=== PATIENT | female | born 1995 | race Caucasian/White ===

== ENCOUNTER 2018-12-02 06:00 | Inpatient (IN) ==
[~2018-12-02 06:00] MED LIST: *HR* Nalbuphine 10 MG/ML AMPUL IVP PRN; Famotidine 20 MG/2 ML VIAL IVP PRN; Metoclopramide 10 MG/2 ML VIAL IVP PRN; Naloxone 0.4 MG/ML INJ IVP PRN; Penicillin G Potassium 5,000,000 UNIT in 0.9 % Sodium Chloride Mini Bag 100 ML IVPB ONE; Ringers Solution, Lactated 1,000 ML IVC SCH
[2018-12-02 06:45] LABS: Basophils # 0.1 K/mcL (0.0-0.2); Basophils % 0.7 %; Eosinophils # 0.3 K/mcL (0.0-0.6); Hematocrit 32.1 % (35.3-44.9); Hemoglobin 11.1 g/dL (11.5-15.4); Immature Granulocytes % 0.5 % (0-4); Lymphocytes # 2.8 K/mcL (0.6-4.6); Lymphocytes % 26.3 %; Mean Corpuscular HGB Conc 34.6 g/dL (31.6-35.5); Mean Corpuscular Hemoglobin 31.4 pg (28.0-33.3); Mean Corpuscular Volume 90.9 fL (83.0-100.0); Mean Platelet Volume 10.9 fL (9.4-12.4); Monocytes # 0.8 K/mcL (0.0-1.3); Monocytes % 7.3 %; Neutrophils # 6.6 K/mcL (1.6-8.9); Platelet Count 280 K/mcL (140-400); Red Blood Count 3.53 M/mcL (3.82-4.97); Red Cell Distribution Width 13.2 % (11.5-14.5); Segmented Neutrophils % 62.2 %; White Blood Count 10.7 K/mcL (4.3-11.1)
[2018-12-02 07:24] LABS: Amphetamine Screen,Urine Negative ng/mL (Cutoff=1000); Barbiturate Screen,Urine Negative ng/mL (Cutoff=200)
[2018-12-02 07:25] LABS: Benzodiazepines Screen,Urine Negative ng/mL (Cutoff=300); Cannabinoid Screen,Urine Negative ng/mL (Cutoff = 50); Cocaine Screen,Urine Negative ng/mL (Cutoff= 300); Opiate Screen,Urine Negative ng/mL (Cutoff=300); Phencyclidine Screen,Urine Negative ng/mL (Cutoff=25)
[2018-12-02] MEDS ORDERED: Ropivacaine/PF 0.2% 20 ML VIAL EP ONE (08:26)
[2018-12-02] MEDS ORDERED: *HR* FentaNYL (PF) 100 MCG/2 ML VIAL EP ONE (08:26)
[2018-12-02] MEDS ORDERED: Naloxone 0.4 MG/ML INJ IVP PRN (08:26)
[2018-12-02] MEDS ORDERED: Ondansetron 4 MG/2 ML VIAL IVP PRN (08:26)
[2018-12-02] MEDS ORDERED: EPHEDrine 50 MG/ML VIAL IVP PRN (08:26)
[2018-12-02] MEDS ORDERED: Epidural Premix (fent/bupiv) 110 ML EP SCH (08:30)
--- NOTE | 2018-12-02 08:32 | Anesthesia Evaluation PreOp ---
Date of Encounter: 12/02/18 Time of Encounter: 08:27 - Past History Planned Operation: SHELDON Cardiac History: Denies any Significant Hx Pulmonary History: Denies Any Significant HX EDGE BANDER HAND History: Denies Any Significant HX Other Medical History: Thyroid (history of cyst removal from thyroid) Anesthesia History: No Prior Anesthetic Complications, Past Anesthesia (Excision of thyroid cyst, wisdom teeth extraction) : Yes Alcohol Use: none Drug use: none Medications and Allergies Ferrous Sulfate [Iron] 1 tab PO DAILY 12/02/18 [History] Pnv No.95/Ferrous Fum/Folic AC [ Caplet] 1 tab PO DAILY 12/02/18 [History] Allergy/AdvReac Type Severity Reaction Status Date / Time No Known Allergies Allergy Verified 12/02/18 06:29 - Meds/Allergy Pre-op Review Medications Reviewed: Yes Allergies Reviewed: Yes Beta Blockers on Current Med List: No Anesthesia Results - Labs 12/02/18 06:00 Anesthesia Exam BP 118/70 P 91 R 18 T 97.3 Height: 5'1" Weight: 75.29kg NPO (# of Hours): 3 Pain Scale: 4 Pain Scale Used: Numeric (1 - 10) - HEENT Pupil (Motor): Pupils equal Mallampati: II Teeth: Normal Oral Opening: Greater than 3 - EDGE BANDER HAND LOC: Oriented EDGE BANDER HAND Motor: Normal RUE, Normal LUE, Normal RLE, Normal LLE, Normal Face EDGE BANDER HAND Sensory: Normal: RUE, LUE, RLE, LLE, Face - Cardiac Rhythm: Regular Murmur: None JVD: No Carotid Bruit: No - Pulmonary Breath Sounds: bilateral Clear Respiratory Effort: Symmetrical Anesthesia Assess/Plan ASA Score: 2 Level of consciousness: Cooperative, Oriented, Tranquil Anesthetic Plan: Epidural Autologous Blood: No Recovery Plan: Other
[2018-12-02] MEDS ORDERED: *HR* FentaNYL (PF) 100 MCG/2 ML VIAL ONE (08:40)
[2018-12-02] MEDS ORDERED: *HR* Phenylephrine 10 MG/ML VIAL ONE (08:41)
[2018-12-02] MEDS ORDERED: Ropivacaine/PF 0.2% 20 ML VIAL ONE (08:41)
--- NOTE | 2018-12-02 09:23 | Anesthesia Procedures ---
Date of Encounter: 12/02/18 Time of Encounter: 08:47 Procedures: Anesthesia - Epidural/Spinal Patient ID/Chart reviewed: Yes Patient examined: Yes OB Eval: Gestational age: 37 OB Eval: : 2 OB Eval: Hx Para: 1 OB Eval: Dilated at (cm): 2 OB Eval: Contractions: Non-stressed pattern Consent Obtained: Yes Supplemental Oxygen: None/Room Air Site Prep: Aseptic Technique, Sterile prep and drape, Povidone-Iodine 1% Patient position: upright Local Anesthetic: Lidocaine 1% Amount of Local Anesthetic used: 3 Touhy Needle Gauge: 18 Touhy Needle Depth (cm): 6 Catheter Depth at Skin (cm): 14 Test Dose (1.5% Lido + Epi): Volume given (mls): 3 Test Dose Result: Negative Loading Dose: Fentanyl (mcg): 100 Loading Dose: Other: Ropivicaine 0.2% 5ml, 3ml Normal saline Loading Dose Administered: Thru Catheter Infusion Med: 0.125% Bupivacaine w/ 2 mcg/ml Fentanyl Infusion Rate (mls/hr): [address]: Tegaderm, Tape Interspace Used: L4-L5 Loss of Resistance (ROMAIN): Yes Blood: No CSF: No Paresthesia: No Procedure: SHELDON placed 1st pass in upright position. ROMAIN achieved with normal saline. Catheter threaded with ease to 14cm at the skin. Test dose negative. Pt stated comfort following administration of bolus. VSS throughout. Vitals + FHT's: 0847 BP 110/67 P 93 R 18 0912 BP 116/62 P 77 R 16
[2018-12-02] MEDS: Penicillin G Potassium 2,500,000 UNIT in 0.9 % Sodium Chloride 100 ML IVPB SCH ×2 (10:25→14:32)
--- NOTE | 2018-12-02 13:06 | Anesthesia Progress Note ---
Date of Encounter: 12/02/18 Time of Encounter: 13:01 Anesthesia Note - Note Note: 12/02/18 13:01 Called to patient bedside with complaints of breakthrough labor abdominal pain. Ropivicaine 0.1% 10ml administered via epidural bolus. BP 113/57 P81
[2018-12-02] MEDS ORDERED: *HR* Ropivacaine/PF 0.5% 20 ML VIAL ONE (13:13)
--- NOTE | 2018-12-02 13:34 | Anesthesia Progress Note ---
Date of Encounter: 12/02/18 Time of Encounter: 13:32 Anesthesia Note - Note Note: 12/02/18 13:32 Pt stated previous bolus relieved pain, but that relief was somewhat one sided. Epidural catheter pulled back to 11cm at the skin. Epidural pump rate increased to 16ml/hr. VSS
[2018-12-02] MEDS ORDERED: Oxytocin 20 units/ LR 1000 mL 20 UNIT/1,000 ML BAG IVC ONE ×2 (15:05→17:33)
--- NOTE | 2018-12-02 15:45 | OB/GYN Procedure Note ---
Delivery - Delivery Date: 12/02/18 Provider: Amparo Pérez Intrapartum events: none Delivery induction: none Delivery augmentation: rupture of membranes Delivery monitor: external FHT, external uterine Anesthesia: epidural - Infant (s) A Infant Delivery Date: 12/02/18 Delivery Time: 15:13 Presentation: vertex Position: OA Route of delivery: Gender: Female Viability: Viable Pounds: 7 Ounces: 5 Weight Gram: 3330 kg at 1 minute: 8 at 5 mins: 9 Shoulder Dystocia: not encountered Specimens collected: cord blood Placenta: spontaneous Cord: nuchal cord, delivered through nuchal - Repair Episiotomy: none Laceration Description: Periurethral, Superficial (superficial perineal and periurethral) - Complications Delivery complications: none Delivery comments: Patient progressed to complete. Second stage was short. 2 spontaneous vaginal delivery of her an intact perineum of a viable female . Apgars were 8 and 9 at one and 5 minutes respectively. The placenta delivered spontaneously. It had about 200 EBL. We had no difficulties with uterine atony. Upon inspection of perineum showed a very superficial laceration of the perineal body and a superficial laceration on the right periurethral region. Interrupted sutures were placed in these regions for patient's comfort. Delivery she had an epidural. With no complications. Reassuring heart tones throughout. - Disposition Mom disposition: stable in LDR disposition: stable in LDR
[2018-12-02] MEDS ORDERED: Acetaminophen 325 MG TABLET PO PRN (17:40)
[2018-12-02] MEDS ORDERED: Oxytocin 20 units/ LR 1000 mL 20 UNIT/1,000 ML BAG IVC SCH (17:40)
[2018-12-02] MEDS ORDERED: Rho Immune Globulin 1,500 UNIT SYRINGE IM PRN (17:40)
[2018-12-02] MEDS ORDERED: Ibuprofen 600 MG TABLET PO PRN (17:40)
[2018-12-02] MEDS ORDERED: Measles/Mumps/Rubella Vacc 0.5 ML VIAL SQ PRN (17:40)
[2018-12-03 05:29] LABS: Basophils # 0.1 K/mcL (0.0-0.2); Basophils % 0.7 %; Eosinophils # 0.2 K/mcL (0.0-0.6); Eosinophils % 1.8 %; Hematocrit 32.6 % (35.3-44.9); Hemoglobin 11.2 g/dL (11.5-15.4); Immature Granulocytes % 0.7 % (0-4); Lymphocytes # 2.8 K/mcL (0.6-4.6); Lymphocytes % 20.4 %; Mean Corpuscular HGB Conc 34.4 g/dL (31.6-35.5); Mean Corpuscular Volume 93.1 fL (83.0-100.0); Mean Platelet Volume 10.8 fL (9.4-12.4); Monocytes # 1.2 K/mcL (0.0-1.3); Monocytes % 8.9 %; Neutrophils # 9.3 K/mcL (1.6-8.9); Platelet Count 250 K/mcL (140-400); Red Cell Distribution Width 13.3 % (11.5-14.5); Segmented Neutrophils % 67.5 %; White Blood Count 13.7 K/mcL (4.3-11.1)
[2018-12-03 07:54] VITALS: BP 103/64
[2018-12-03] MEDS ORDERED: FERROUS SULFATE PO SCH (09:00)
[2018-12-03] MEDS ORDERED: Prenatal Vit/FA 1 EACH TABLET PO SCH (09:00)
[2018-12-03] MEDS ORDERED: NON-FORMULARY MEDICATION 1 EACH EACH (Pnv No.95/Ferrous Fum/Folic Ac [Prenatal Caplet] 1 T PO SCH (09:00)
--- NOTE | 2018-12-03 09:08 | Discharge Summary ---
Date of Encounter: 12/03/18 Time of Encounter: 09:06 - Discharge Diagnosis (1) Vaginal delivery Priority: Primary Status: Acute Comments: Stable meeting all PP milestones, pain well managed, appropriate for discharge - Discharge Medications Prescriptions: New Acetaminophen [Tylenol] 650 mg PO Q6HR PRN tablet PRN Reason: Mild Pain Ibuprofen [Motrin] 600 mg PO Q6HR PRN #60 tablet PRN Reason: Cramping Docusate [Colace] 100 mg PO BID #30 capsule Continued Pnv No.95/Ferrous Fum/Folic AC [ Caplet] 1 tab PO DAILY Discontinued Ferrous Sulfate [Iron] 1 tab PO DAILY Home Medications: Pnv No.95/Ferrous Fum/Folic AC [ Caplet] 1 tab PO DAILY 12/02/18 [History] Acetaminophen [Tylenol] 650 mg PO Q6HR PRN tablet 12/03/18 [Rx] Docusate [Colace] 100 mg PO BID #30 capsule 12/03/18 [Rx] Ibuprofen [Motrin] 600 mg PO Q6HR PRN #60 tablet 12/03/18 [Rx] Allergies/Adverse Reactions: Allergy/AdvReac Type Severity Reaction Status Date / Time No Known Allergies Allergy Verified 12/02/18 06:29 Data Procedures and tests throughout hospitalization: Laboratory Tests 12/02/18 12/02/18 12/03/18 06:00 06:15 05:06 WBC 10.7 13.7 H RBC 3.53 L 3.50 L Hgb 11.1 L 11.2 L Hct 32.1 L 32.6 L MCV 90.9 93.1 MCH 31.4 32.0 MCHC 34.6 34.4 RDW 13.2 13.3 Plt Count 280 250 MPV 10.9 10.8 Immature Gran % 0.5 0.7 Seg Neutrophils % 62.2 67.5 Lymphocytes % 26.3 20.4 Monocytes % 7.3 8.9 Eosinophils % 3.0 1.8 Basophils % 0.7 0.7 Neutrophils # 6.6 9.3 H Lymphocytes # 2.8 2.8 Monocytes # 0.8 1.2 Eosinophils # 0.3 0.2 Basophils # 0.1 0.1 Urine Opiates Screen Negative Ur Buprenorphine Scrn Negative Ur Barbiturates Screen Negative Ur Phencyclidine Scrn Negative Ur Amphetamines Screen Negative U Benzodiazepines Scrn Negative Urine Cocaine Screen Negative U Marijuana (THC) Screen Negative Ur Drug Screen Interp See Below Labs on day of discharge: Labs from last 24 hours 12/03/18 05:06 WBC 13.7 H RBC 3.50 L Hgb 11.2 L Hct 32.6 L MCV 93.1 MCH 32.0 MCHC 34.4 RDW 13.3 Plt Count 250 MPV 10.8 Immature Gran % 0.7 Seg Neutrophils % 67.5 Lymphocytes % 20.4 Monocytes % 8.9 Eosinophils % 1.8 Basophils % 0.7 Neutrophils # 9.3 H Lymphocytes # 2.8 Monocytes # 1.2 Eosinophils # 0.2 Basophils # 0.1 Date of admission: 12/02/18 06:00 Primary care physician: Natalia Pace CNP Consults: 12/02/18 17:40 Consult to Asset Protection Officer [CONS] Routine Comment: Vaginal delivery, consult needed Discharging clinician: Halie Cortes Anticipated date of discharge: 12/03/18 - Patient Status Disposition: Home, Self-Care Condition: Good Overall status at discharge: patient is progressing back to baseline - Discharge Instructions Follow Up With: Natalia Pace CNP [Primary Care Provider] - - Diet and Activity Activity: resume usual activities as tolerated Diet: regular diet Hospital Course Reason for admission: IUP at term Delivery: Episiotomy: none Laceration: other Other procedures: none complications: none Discharge diagnosis: IUP at term delivered baby: female Hospital course: Delivery - Delivery Date: 12/02/18 Provider: Amparo Pérez Intrapartum events: none Delivery induction: none Delivery augmentation: rupture of membranes Delivery monitor: external FHT, external uterine Anesthesia: epidural - (s) A Delivery Date: 12/02/18 Infant Delivery Time: 15:13 Presentation: vertex Position: OA Route of delivery: Gender: Female Viability: Viable Pounds: 7 Ounces: 5 Weight Gram: 3330 kg at 1 minute: 8 at 5 mins: 9 Shoulder Dystocia: not encountered Specimens collected: cord blood Placenta: spontaneous Cord: nuchal cord, delivered through nuchal - Repair Episiotomy: none Laceration Description: Periurethral, Superficial (superficial perineal and periurethral) - Complications Delivery complications: none Delivery comments: Patient progressed to complete. Second stage was short. 2 spontaneous vaginal delivery of her an intact perineum of a viable female . Apgars were 8 and 9 at one and 5 minutes respectively. The placenta delivered spontaneously. It had about 200 EBL. We had no difficulties with uterine atony. Upon inspection of perineum showed a very superficial laceration of the perineal body and a superficial laceration on the right periurethral region. Interrupted sutures were placed in these regions for patient's comfort. Delivery she had an epidural. With no complications. Reassuring heart tones throughout. - Disposition Mom disposition: stable in PP and appropriate for discharge Time Attestation: Total time spent providing and/or coordinating discharge services: Time Spent: Less than 30 minutes Exam - Constitutional Vitals: Temp Pulse Resp BP Pulse Ox 98.3 F 67 15 103/64 98 12/03/18 07:53 12/03/18 07:53 12/03/18 07:53 12/03/18 07:53 12/03/18 07:53 General appearance IM: A&O X 3 - Respiratory Respiratory exam: Present: CTAB - Cardiovascular Cardiovascular exam IM: Present: RRR - GI/Abdominal GI/Abdominal exam IM: soft - Uterine Tone: Firm Uterus Position: At Umbilicus - Extremities Exam Extremities exam IM: Present: normal capillary refill, normal inspection - Neurological Exam Neurological exam: normal gait, oriented X3 - Psychiatric Additional comments: reports good mood
== END 2018-12-03 12:31 | disposition home or self-care (01) | DRG 807 ==
LOC: 1NENULAB → 1NENUOBS 17:40
PROVIDERS: ADMIT Advanced Practice Midwife; ATTEND Advanced Practice Midwife

== ENCOUNTER → 2020-02-22 01:12 | Observation (INO) ==
[2020-02-21 21:12] LABS: Basophils % 0.3 %; Eosinophils # 0.1 K/mcL (0.0-0.6); Eosinophils % 1.1 %; Hematocrit 29.1 % (35.3-44.9); Hemoglobin 9.8 g/dL (11.5-15.4); Immature Granulocytes % 0.7 % (0-4); Lymphocytes # 1.5 K/mcL (0.6-4.6); Mean Corpuscular HGB Conc 33.7 g/dL (31.6-35.5); Mean Corpuscular Hemoglobin 30.2 pg (28.0-33.3); Mean Corpuscular Volume 89.5 fL (83.0-100.0); Mean Platelet Volume 10.8 fL (9.4-12.4); Monocytes # 0.6 K/mcL (0.0-1.3); Monocytes % 7.7 %; Neutrophils # 5.2 K/mcL (1.6-8.9); Platelet Count 209 K/mcL (140-400); Red Blood Count 3.25 M/mcL (3.82-4.97); Red Cell Distribution Width 13.3 % (11.5-14.5); Segmented Neutrophils % 70.2 %; White Blood Count 7.5 K/mcL (4.3-11.1)
[2020-02-21 21:21] LABS: INR 0.9; Prothrombin Time 10.8 Seconds (9.4-12.1)
[2020-02-21 21:23] LABS: Activated Partial Thrombo Time 24.4 Seconds (26.0-36.0)
== END | disposition home or self-care (01) ==
LOC: 1NENULAB
PROVIDERS: ADMIT Obstetrics & Gynecology; ATTEND Obstetrics & Gynecology

== ENCOUNTER 2020-03-02 08:00 | Inpatient (IN) ==
[2020-03-02] MEDS ORDERED: Metoclopramide 10 MG/2 ML VIAL IVP PRN (08:28)
[2020-03-02] MEDS ORDERED: Azithromycin 500 MG in 0.9 % Sodium Chloride 250 ML IVPB ONE (08:28)
[2020-03-02] MEDS ORDERED: *HR* FentaNYL (PF) 100 MCG/2 ML VIAL IVP PRN (08:28)
[2020-03-02] MEDS ORDERED: Naloxone 0.4 MG/ML INJ IVP PRN (08:28)
[2020-03-02] MEDS ORDERED: Ondansetron 4 MG/2 ML VIAL IVP PRN (08:28)
[2020-03-02] MEDS ORDERED: Famotidine 20 MG/2 ML VIAL IVP PRN (08:28)
[2020-03-02] MEDS ORDERED: Lidocaine 1% 20 ML MDV INFILT PRN (08:28)
[2020-03-02] MEDS ORDERED: Oxytocin 20 units/ LR 1000 mL 20 UNIT/1,000 ML BAG IVC SCH ×2 (08:45→22:29)
[2020-03-02 08:51] LABS: Basophils % 0.5 %; Eosinophils # 0.1 K/mcL (0.0-0.6); Eosinophils % 1.2 %; Hematocrit 29.6 % (35.3-44.9); Hemoglobin 9.8 g/dL (11.5-15.4); Immature Granulocytes % 0.6 % (0-4); Lymphocytes # 1.7 K/mcL (0.6-4.6); Lymphocytes % 26.7 %; Mean Corpuscular HGB Conc 33.1 g/dL (31.6-35.5); Mean Corpuscular Hemoglobin 29.8 pg (28.0-33.3); Mean Platelet Volume 10.9 fL (9.4-12.4); Monocytes # 0.5 K/mcL (0.0-1.3); Neutrophils # 4.1 K/mcL (1.6-8.9); Platelet Count 196 K/mcL (140-400); Red Blood Count 3.29 M/mcL (3.82-4.97); Red Cell Distribution Width 13.3 % (11.5-14.5); White Blood Count 6.5 K/mcL (4.3-11.1)
[2020-03-02 08:59] LABS: Amphetamine Screen,Urine Negative ng/mL (Cutoff=1000); Barbiturate Screen,Urine Negative ng/mL (Cutoff=200); Benzodiazepines Screen,Urine Negative ng/mL (Cutoff=200); Cannabinoid Screen,Urine Negative ng/mL (Cutoff = 50); Cocaine Screen,Urine Negative ng/mL (Cutoff= 300); Opiate Screen,Urine Negative ng/mL (Cutoff=300); Phencyclidine Screen,Urine Negative ng/mL (Cutoff=25)
[2020-03-02] MEDS: Ringers Solution, Lactated 1,000 ML IVC SCH ×2 (09:39→14:22)
[2020-03-02] MEDS ORDERED: EPHEDrine 50 MG/ML VIAL IVP PRN (10:42)
[2020-03-02] MEDS ORDERED: Epidural Premix (fent/bupiv) 110 ML EP SCH (10:45)
[2020-03-02] MEDS ORDERED: *HR* Ropivacaine/PF 0.5% 20 ML VIAL ONE (17:10)
[2020-03-02] MEDS ORDERED: Lidocaine -MPF 2% 5 ML VIAL ONE (17:10)
[2020-03-02] MEDS ORDERED: Lanolin 7 G OINT...G. TP PRN (22:29)
[2020-03-02] MEDS ORDERED: Oxytocin 20 units/ LR 1000 mL 20 UNIT/1,000 ML BAG IVC ONE (22:29)
[2020-03-02] MEDS ORDERED: Measles/Mumps/Rubella Vacc 0.5 ML VIAL SQ PRN (22:29)
[2020-03-02] MEDS ORDERED: Ibuprofen 600 MG TABLET PO PRN (22:29)
[2020-03-02] MEDS ORDERED: Benzocaine/Menthol 56 GM AEROSOL SPRAY TP PRN (22:29)
[2020-03-02] MEDS ORDERED: Acetaminophen 325 MG TABLET PO PRN (22:29)
[2020-03-02] MEDS ORDERED: Rho Immune Globulin 1,500 UNIT SYRINGE IM PRN (22:29)
[2020-03-03 04:38] LABS: Basophils % 0.3 %; Eosinophils % 0.4 %; Hematocrit 26.1 % (35.3-44.9); Hemoglobin 8.6 g/dL (11.5-15.4); Immature Granulocytes % 0.4 % (0-4); Lymphocytes # 1.3 K/mcL (0.6-4.6); Lymphocytes % 13.2 %; Mean Corpuscular Hemoglobin 29.8 pg (28.0-33.3); Mean Corpuscular Volume 90.3 fL (83.0-100.0); Monocytes # 0.9 K/mcL (0.0-1.3); Monocytes % 9.4 %; Neutrophils # 7.6 K/mcL (1.6-8.9); Platelet Count 163 K/mcL (140-400); Red Blood Count 2.89 M/mcL (3.82-4.97); Red Cell Distribution Width 13.4 % (11.5-14.5); Segmented Neutrophils % 76.3 %
[2020-03-03 07:55] VITALS: BP 109/62
[2020-03-03] MEDS ORDERED: NON-FORMULARY MEDICATION 1 EACH EACH (Pnv No.95/Ferrous Fum/Folic Ac [Prenatal Caplet] 1 T PO SCH (09:00)
[2020-03-03] MEDS ORDERED: Prenatal Vit/FA 1 EACH TABLET PO SCH (09:00)
== END 2020-03-03 20:00 | disposition home or self-care (01) | DRG 807 ==
LOC: 1NENULAB 08:09 → 1NENUOBS 22:31
PROVIDERS: ADMIT Student in an Organized Health Care Education/Training Program; ATTEND Student in an Organized Health Care Education/Training Program